=== PATIENT | male | born 1980 | race Two or more races ===

== ENCOUNTER 2024-06-05 11:04 | Emergency (ER) | payer OTHER ==
[~2024-06-05] VITALS: Ht 177.8 cm; Wt 83.3 kg
[2024-06-05] MEDS ORDERED: 0.9% SODIUM CHLORIDE 10 ML SYRINGE IVP PRN (11:15)
[2024-06-05] MEDS ORDERED: CEFEPIME HCL 2 GM in DEXTROSE 5%-WATER 50 ML IV ONE (11:15)
[2024-06-05 11:16] VITALS: TEMP 99.8
[2024-06-05] MEDS ORDERED: GADOTERATE MEGLUMINE 10 MMOL/20 ML VIAL IVP ONE (11:19)
[2024-06-05 11:25] LABS: BASOPHILS % (AUTO) 0.3 % (0.0-2.0); EOSINOPHILS % (AUTO) 0 % (1.0-6.0); HEMATOCRIT 40.4 % (41-53); HEMOGLOBIN 13.2 g/dL (13.5-17.5); LYMPHOCYTES # (AUTO) 1.6 K/uL (1.0-4.8); LYMPHOCYTES % (AUTO) 6.4 % (22.0-44.0); MEAN CORPUSCULAR HEMOGLOBIN 28.1 pg (26.0-34.0); MEAN CORPUSCULAR HGB CONC 32.7 G/dL (31.0-37.0); MEAN CORPUSCULAR VOLUME 86 fL (80-100); MONOCYTES # (AUTO) 2.1 K/uL (0.1-1.0); MONOCYTES % (AUTO) 8.6 % (2.0-9.0); NEUTROPHILS # (AUTO) 20.6 K/uL (1.8-7.7); NEUTROPHILS % (AUTO) 84.7 % (40.0-70.0); PLATELET COUNT (AUTO) 252 K/uL (150-450); RED BLOOD CELL COUNT(AUTO) 4.71 MIL/uL (4.50-5.90); RED CELL DISTRIBUTION WIDTH 15.1 % (11.5-14.5); WHITE BLOOD COUNT (AUTO) 24.4 K/uL (4.5-11.0)
[2024-06-05] MEDS: SODIUM CHLORIDE 0.9% 2,500 ML IV ONE (11:42)
[2024-06-05 11:51] LABS: PROTHROMBIN TIME 11.6 SEC (9.4-11.6)
[2024-06-05] MEDS: CefTRIAXone SODIUM 2 GM in DEXTROSE 5%-WATER 50 ML IV ONE (11:59)
[2024-06-05] MEDS: VANCOMYCIN 1.5 GM/WATER(PEG) 300 ML IV ONE (11:59)
[2024-06-05 12:03] LABS: ANION GAP 13 mmol/L (8-16); CALCIUM, TOTAL 9.3 mg/dL (8.8-10.5); CARBON DIOXIDE 25 mmol/L (22-29); CHLORIDE 99 mmol/L (98-107); CREATININE 0.94 mg/dL (0.60-1.30); GLOMERULAR FILTR. RATE CALC > 60 mL/min (>60); GLUCOSE,RANDOM 133 mg/dL (70-110); POTASSIUM 4.1 mmol/L (3.5-5.1); SODIUM SERUM 137 mmol/L (136-145); UREA NITROGEN, BLOOD 11 mg/dL (7-18)
[2024-06-05 12:08] LABS: ALANINE AMINOTRANSFERASE 38 U/L (12-78); ALBUMIN 3.2 g/dL (3.4-5.0); ALKALINE PHOSPHATASE 136 U/L (46-116); ASPARTATE AMINOTRANSFERASE 16 U/L (15-37); BILIRUBIN,TOTAL 0.5 mg/dL (0.1-1.0); TOTAL PROTEIN, SERUM 7.1 g/dL (6.4-8.2)
[2024-06-05 12:14] LABS: LACTIC ACID 2.2 mmol/L (0.4-2.0)
[2024-06-05 21:35] VITALS: BP 135/93; PULSE 100; RESP 18; O2SAT 96
== END 2024-06-05 22:23 | disposition short-term general hospital (02) ==
LOC: EMS 11:06
DX: T81.43XA Infection following a procedure, organ and space surgical site, initial encounter (principal); T81.49XA Infection following a procedure, other surgical site, initial encounter; R41.82 Altered mental status, unspecified; A41.9 Sepsis, unspecified organism; G03.9 Meningitis, unspecified; X58.XXXA Exposure to other specified factors, initial encounter
CPT/HCPCS: 99291; 70553; 96365; 71045; 80048; 82248; 83605; 85025; 85610; 87040; 36415; 93005; 96368; 84145; J0696; A9575; J7060; J3490; J0692

== ENCOUNTER 2024-07-11 17:17 | Inpatient (IN) | payer OTHER ==
[~2024-07-11] VITALS: Ht 180.3 cm; Wt 77.1 kg
[2024-07-11] MEDS ORDERED: ENOXAPARIN SODIUM 40 MG/0.4 ML PF SYRINGE SQ SCH (21:00)
[2024-07-11 21:20] VITALS: BP 115/78; PULSE 62; RESP 18; TEMP 97.6; O2SAT 97
[2024-07-11] MEDS ORDERED: TraZODone HCL 100 MG TABLET PO SCH (22:30)
[2024-07-11] MEDS ORDERED: ACETAMINOPHEN 325 MG TABLET PO PRN (23:15)
[2024-07-11] MEDS: LevETIRAcetam 500 MG TABLET PO SCH (23:17)
[2024-07-11] MEDS: DOCUSATE SODIUM 100 MG CAPSULE PO SCH (23:18)
[2024-07-11] MEDS: MELATONIN 5 MG TABLET PO SCH (23:18)
[2024-07-11] MEDS: MIRTAZAPINE 15 MG TABLET PO SCH (23:19)
[2024-07-11] MEDS: BACLOFEN 10 MG TABLET PO SCH (23:20)
[2024-07-11] MEDS: SENNOSIDES 8.6 MG TABLET PO SCH (23:22)
[2024-07-11] MEDS: ETHYL ALCOHOL 62% ANTISEPTIC NASAL SANITIZER 0.6 ML AMPUL NASAL SCH (23:23)
[2024-07-11] MEDS: GABAPENTIN 300 MG CAPSULE PO SCH (23:23)
[2024-07-12 00:01] VITALS: O2SAT 97
[2024-07-12] MEDS: CeFAZolin 2 GM/DEXTROSE 50 ML IV SCH (00:16)
[2024-07-12] MEDS: 0.9% SODIUM CHLORIDE 10 ML SYRINGE IVP SCH (00:24)
[2024-07-12] MEDS ORDERED: LEVOTHYROXINE SODIUM 75 MCG TABLET PO SCH (07:00)
[2024-07-12] MEDS: ENOXAPARIN SODIUM 40 MG/0.4 ML PF SYRINGE SQ SCH (07:44)
[2024-07-12] MEDS: AMANTADINE HCL 100 MG CAPSULE PO SCH (07:45)
[2024-07-12] MEDS: AmLODIPine BESYLATE 10 MG TABLET PO SCH (07:45)
[2024-07-12] MEDS: PROPRANOLOL HCL 10 MG TABLET PO SCH (07:45)
[2024-07-12] MEDS: DICLOFENAC SODIUM 1% 100 GM GEL [2GM] TP SCH (07:47)
[2024-07-12] MEDS: LIDOCAINE 5% TRANSDERMAL PATCH TD SCH (07:47)
[2024-07-12 09:18] VITALS: BP 122/64; PULSE 72; RESP 18; TEMP 98; O2SAT 97
[2024-07-12 09:24] LABS: EOSINOPHILS % (AUTO) 5.2 % (1.0-6.0); HEMATOCRIT 38.5 % (41-53); HEMOGLOBIN 12.9 g/dL (13.5-17.5); LYMPHOCYTES # (AUTO) 0.9 K/uL (1.0-4.8); LYMPHOCYTES % (AUTO) 21.6 % (22.0-44.0); MEAN CORPUSCULAR HEMOGLOBIN 28.4 pg (26.0-34.0); MEAN CORPUSCULAR HGB CONC 33.5 G/dL (31.0-37.0); MEAN CORPUSCULAR VOLUME 85 fL (80-100); MONOCYTES # (AUTO) 0.4 K/uL (0.1-1.0); MONOCYTES % (AUTO) 8.9 % (2.0-9.0); NEUTROPHILS # (AUTO) 2.6 K/uL (1.8-7.7); NEUTROPHILS % (AUTO) 63.3 % (40.0-70.0); PLATELET COUNT (AUTO) 231 K/uL (150-450); RED BLOOD CELL COUNT(AUTO) 4.55 MIL/uL (4.50-5.90); RED CELL DISTRIBUTION WIDTH 14.6 % (11.5-14.5); WHITE BLOOD COUNT (AUTO) 4.1 K/uL (4.5-11.0)
[2024-07-12 09:40] LABS: ALANINE AMINOTRANSFERASE 7 U/L (12-78); ALBUMIN 3.1 g/dL (3.4-5.0); ALKALINE PHOSPHATASE 98 U/L (46-116); ANION GAP 7 mmol/L (8-16); ASPARTATE AMINOTRANSFERASE 12 U/L (15-37); BILIRUBIN,TOTAL 0.2 mg/dL (0.1-1.0); CALCIUM, TOTAL 8.6 mg/dL (8.8-10.5); CARBON DIOXIDE 28 mmol/L (22-29); CHLORIDE 106 mmol/L (98-107); CREATININE 0.99 mg/dL (0.60-1.30); GLOMERULAR FILTR. RATE CALC > 60 mL/min (>60); GLUCOSE,RANDOM 150 mg/dL (70-110); POTASSIUM 3.6 mmol/L (3.5-5.1); SODIUM SERUM 141 mmol/L (136-145); TOTAL PROTEIN, SERUM 6.7 g/dL (6.4-8.2); UREA NITROGEN, BLOOD 10 mg/dL (7-18)
[2024-07-12] MEDS: ACETAMINOPHEN 325 MG TABLET PO PRN (09:43)
[2024-07-12 10:18] VITALS: O2SAT 98
[2024-07-12 11:28] VITALS: BP 124/63; PULSE 68; RESP 18; TEMP 98.2; O2SAT 98
[2024-07-12] MEDS: PROPRANOLOL HCL 20 MG TABLET PO SCH (15:39)
[2024-07-12 16:08] VITALS: BP 127/62; PULSE 75; RESP 18; TEMP 98.6; O2SAT 98
[2024-07-12 20:03] VITALS: BP 115/57; PULSE 79; RESP 19; TEMP 98.1; O2SAT 98
[2024-07-12] MEDS: -LIDODERM PATCH NOTE- MISC SCH (20:12)
[2024-07-12] MEDS: HydrOXYzine HCL 50 MG TABLET PO PRN (20:16)
[2024-07-12] MEDS: CHLORHEXIDINE GLUCONATE 2% TOWELETTE [2'S/6'S] TP SCH (22:00)
[2024-07-13] MEDS ORDERED: LORazepam 2 MG/ML VIAL ONE (00:30)
[2024-07-13] MEDS: LORazepam 2 MG/ML VIAL IVP ONE ×2 (00:33→01:46)
[2024-07-13 03:02] VITALS: O2SAT 98
[2024-07-13 08:00] VITALS: BP 119/75; PULSE 69; RESP 18; TEMP 97.9; O2SAT 97
[2024-07-13] MEDS: LEVOTHYROXINE SODIUM 75 MCG TABLET PO SCH (08:48)
[2024-07-13] MEDS: GABAPENTIN 400 MG CAPSULE PO SCH (14:44)
[2024-07-13] MEDS ORDERED: PROPRANOLOL HCL 40 MG TABLET PO SCH (16:00)
[2024-07-13] MEDS ORDERED: GABAPENTIN 400 MG CAPSULE PO SCH ×2 (16:00)
[2024-07-13 16:05] VITALS: BP 111/70; PULSE 77; RESP 18
[2024-07-13] MEDS: PROPRANOLOL HCL 10 MG TABLET PO SCH (16:35)
[2024-07-13 20:00] VITALS: BP 117/74; PULSE 72; RESP 18; TEMP 98.9; O2SAT 96
[2024-07-13] MEDS: TraZODone HCL 100 MG TABLET PO SCH (20:47)
[2024-07-13] MEDS ORDERED: MIRTAZAPINE 15 MG TABLET PO SCH (21:00)
[2024-07-14] MEDS ORDERED: GABAPENTIN 400 MG CAPSULE PO SCH
[2024-07-14] MEDS ORDERED: GABAPENTIN 300 MG CAPSULE PO SCH
[2024-07-14] MEDS: MIRTAZAPINE 15 MG TABLET PO PRN (00:06)
[2024-07-14 08:30] VITALS: BP 121/82; PULSE 70; RESP 19; TEMP 97.9; O2SAT 96
[2024-07-14] MEDS: AmLODIPine BESYLATE 5 MG TABLET PO SCH (09:16)
[2024-07-14] MEDS: ENOXAPARIN SODIUM 40 MG/0.4 ML PF SYRINGE SQ SCH (09:18)
[2024-07-14] MEDS: GABAPENTIN 100 MG CAPSULE PO SCH (13:49)
[2024-07-14 16:13] VITALS: BP 97/64; PULSE 65; RESP 18; TEMP 98.2; O2SAT 97
[2024-07-14 19:38] VITALS: BP 108/64; PULSE 70; RESP 18; TEMP 97.8; O2SAT 97
[2024-07-14] MEDS: MELATONIN 5 MG TABLET PO SCH (20:15)
[2024-07-14] MEDS: GABAPENTIN 300 MG CAPSULE PO SCH (20:15)
[2024-07-14] MEDS: QUEtiapine FUMARATE 25 MG TABLET PO PRN (21:50)
[2024-07-14 22:10] VITALS: O2SAT 97
[2024-07-15] MEDS: CABERGOLINE 0.5 MG PO SCH (07:38)
[2024-07-15 08:05] VITALS: BP 96/62; PULSE 58; RESP 18; TEMP 98; O2SAT 95
[2024-07-15] MEDS ORDERED: QUEtiapine FUMARATE 25 MG TABLET PO PRN (08:30)
[2024-07-15 09:00] VITALS: BP 98/64; PULSE 60; RESP 18; TEMP 98.2; O2SAT 98
[2024-07-15] MEDS ORDERED: CABERGOLINE 0.5 MG PO SCH (09:00)
[2024-07-15] MEDS: AmLODIPine BESYLATE 2.5 MG TABLET PO SCH (09:00)
[2024-07-15 10:43] VITALS: O2SAT 98
[2024-07-15 16:48] VITALS: BP 124/63; PULSE 70; RESP 18; TEMP 98.6; O2SAT 98
[2024-07-15] MEDS: QUEtiapine FUMARATE 25 MG TABLET PO SCH (19:53)
[2024-07-15 20:00] VITALS: BP 127/79; PULSE 77; RESP 20; TEMP 97.9; O2SAT 96
[2024-07-15 23:00] VITALS: O2SAT 96
[2024-07-16] MEDS ORDERED: SODIUM CHLORIDE 0.9% 250 ML IV ONE (05:38)
[2024-07-16 08:00] VITALS: BP 90/58; PULSE 58; RESP 19; TEMP 98; O2SAT 100
[2024-07-16 08:10] LABS: ANION GAP 6 mmol/L (8-16); CALCIUM, TOTAL 8.5 mg/dL (8.8-10.5); CARBON DIOXIDE 28 mmol/L (22-29); CHLORIDE 103 mmol/L (98-107); CREATININE 0.85 mg/dL (0.60-1.30); GLOMERULAR FILTR. RATE CALC > 60 mL/min (>60); GLUCOSE,RANDOM 81 mg/dL (70-110); POTASSIUM 3.7 mmol/L (3.5-5.1); SODIUM SERUM 137 mmol/L (136-145); UREA NITROGEN, BLOOD 10 mg/dL (7-18)
[2024-07-16 08:15] VITALS: BP 126/63; PULSE 76
[2024-07-16] MEDS ORDERED: -LIDODERM PATCH NOTE- MISC SCH (10:04)
[2024-07-16 10:50] LABS: BASOPHILS % (AUTO) 0.8 % (0.0-2.0); EOSINOPHILS % (AUTO) 3.1 % (1.0-6.0); HEMATOCRIT 42.1 % (41-53); HEMOGLOBIN 13.9 g/dL (13.5-17.5); LYMPHOCYTES # (AUTO) 1.4 K/uL (1.0-4.8); LYMPHOCYTES % (AUTO) 22.8 % (22.0-44.0); MEAN CORPUSCULAR HEMOGLOBIN 27.6 pg (26.0-34.0); MEAN CORPUSCULAR HGB CONC 32.9 G/dL (31.0-37.0); MEAN CORPUSCULAR VOLUME 84 fL (80-100); MONOCYTES # (AUTO) 0.7 K/uL (0.1-1.0); MONOCYTES % (AUTO) 10.8 % (2.0-9.0); NEUTROPHILS # (AUTO) 3.9 K/uL (1.8-7.7); NEUTROPHILS % (AUTO) 62.5 % (40.0-70.0); PLATELET COUNT (AUTO) 285 K/uL (150-450); RED BLOOD CELL COUNT(AUTO) 5.01 MIL/uL (4.50-5.90); RED CELL DISTRIBUTION WIDTH 14.7 % (11.5-14.5); WHITE BLOOD COUNT (AUTO) 6.3 K/uL (4.5-11.0)
[2024-07-16 20:00] VITALS: BP 102/73; PULSE 76; RESP 20; TEMP 97.9; O2SAT 97
[2024-07-17 09:02] VITALS: BP 115/74; PULSE 61; RESP 18; TEMP 97.5; O2SAT 97
[2024-07-17 09:03] VITALS: BP 108/68; PULSE 85
[2024-07-17 09:41] VITALS: O2SAT 97
[2024-07-17] MEDS: QUEtiapine FUMARATE 25 MG TABLET PO PRN (11:31)
[2024-07-17 17:10] VITALS: BP 137/79; PULSE 75
[2024-07-17 19:17] VITALS: BP 125/77; PULSE 77; RESP 18; TEMP 98; O2SAT 98
[2024-07-17 23:50] VITALS: O2SAT 98
[2024-07-18 08:00] VITALS: BP 115/74; PULSE 64; RESP 18; TEMP 97.5; O2SAT 98
[2024-07-18] MEDS: SULFAMETHOX/TRIMETH DS 800-160 MG/TABLET PO SCH (08:25)
[2024-07-18 16:00] VITALS: BP 99/58; PULSE 71; RESP 18; O2SAT 98
[2024-07-18 17:00] VITALS: BP 88/53; PULSE 64; RESP 18; O2SAT 98
[2024-07-18] MEDS: MIRTAZAPINE 15 MG TABLET PO PRN (20:11)
[2024-07-18 21:05] VITALS: O2SAT 97
[2024-07-18 21:06] VITALS: BP 107/76; PULSE 82; RESP 18; TEMP 98.1; O2SAT 97
[2024-07-19 08:05] VITALS: BP 98/61; PULSE 60; RESP 18; TEMP 98.4; O2SAT 98
[2024-07-19 09:00] VITALS: BP 100/64; PULSE 60; RESP 18; TEMP 98; O2SAT 98
[2024-07-19 10:43] VITALS: O2SAT 98
[2024-07-19 16:00] VITALS: BP 131/68; PULSE 65; RESP 18; TEMP 98.4; O2SAT 98
[2024-07-19 20:00] VITALS: BP 127/78; PULSE 83; RESP 18; TEMP 97.4; O2SAT 97
[2024-07-19 23:29] VITALS: O2SAT 97
[2024-07-20 08:45] VITALS: BP 107/76; PULSE 69; RESP 19; TEMP 98; O2SAT 97
[2024-07-20] MEDS: FLUoxetine HCL 10 MG CAPSULE PO SCH (08:57)
[2024-07-20 16:47] VITALS: BP 112/74; PULSE 68
[2024-07-20 20:02] VITALS: BP 110/74; PULSE 75; RESP 18; TEMP 97.6; O2SAT 96
[2024-07-20 22:00] VITALS: O2SAT 96
[2024-07-21 08:00] VITALS: BP 110/64; PULSE 64; RESP 19; TEMP 97.8; O2SAT 97
[2024-07-21 20:00] VITALS: BP 110/77; PULSE 67; RESP 18; TEMP 97.5; O2SAT 94
[2024-07-22 08:00] VITALS: BP 123/69; PULSE 65; RESP 19; TEMP 97.7; O2SAT 100
[2024-07-22 16:00] VITALS: BP 108/71; PULSE 70; RESP 18
[2024-07-22] MEDS: CARBOXYMETHYLCELLULOSE SODIUM 0.4 ML OPHTHALMIC SOLUTION [PF] OU PRN (18:11)
[2024-07-22 20:00] VITALS: BP 118/78; PULSE 67; RESP 18; TEMP 98.2; O2SAT 97
[2024-07-23 08:05] VITALS: BP 117/76; PULSE 73; RESP 19; TEMP 97.7; O2SAT 97
[2024-07-23 16:16] VITALS: BP 127/70; PULSE 70
[2024-07-23 20:10] VITALS: BP 127/96; PULSE 64; RESP 18; TEMP 97.5; O2SAT 100
[2024-07-24 01:23] VITALS: O2SAT 100
[2024-07-24 08:05] VITALS: BP 103/69; PULSE 57; RESP 18; TEMP 97.5; O2SAT 98
[2024-07-24] MEDS: TETRAHYDROZOLINE HCL 0.05% 15 ML OPHTHALMIC SOLUTION OU SCH (08:44)
[2024-07-24 09:57] VITALS: O2SAT 98
[2024-07-24] MEDS: MECLIZINE HCL 25 MG TABLET PO PRN (11:11)
[2024-07-24 16:00] VITALS: BP 124/72; PULSE 78; RESP 18; O2SAT 98
[2024-07-24 20:01] VITALS: BP 116/75; PULSE 70; RESP 18; TEMP 98; O2SAT 96
[2024-07-24 21:04] VITALS: O2SAT 96
[2024-07-25 08:05] VITALS: BP 123/72; PULSE 78; RESP 18; TEMP 98.2; O2SAT 98
[2024-07-25 09:37] VITALS: O2SAT 98
[2024-07-25 16:00] VITALS: BP 128/78; PULSE 77; RESP 18; TEMP 98.1
[2024-07-25 21:33] VITALS: BP 124/69; PULSE 76; RESP 20; TEMP 97.5; O2SAT 97
[2024-07-26 08:05] VITALS: BP 100/64; PULSE 58; RESP 18; TEMP 98.4; O2SAT 98
[2024-07-26 11:57] VITALS: O2SAT 98
[2024-07-26 16:35] VITALS: BP 118/67; PULSE 70; RESP 18; O2SAT 98
[2024-07-26 20:00] VITALS: BP 118/77; PULSE 79; RESP 19; TEMP 98.3; O2SAT 97
[2024-07-27 09:00] VITALS: BP 115/70; PULSE 55; RESP 18; TEMP 97.9; O2SAT 97
[2024-07-27 12:17] VITALS: O2SAT 97
[2024-07-27 21:11] VITALS: BP 123/87; PULSE 74; RESP 18; TEMP 97.5; O2SAT 98
[2024-07-27] MEDS ORDERED: LORazepam 2 MG/ML VIAL IM PRN (21:45)
[2024-07-27 22:28] VITALS: O2SAT 98
[2024-07-28 09:23] VITALS: BP 111/71; PULSE 59; RESP 18; TEMP 97.8; O2SAT 99
[2024-07-28 16:02] VITALS: BP 116/82; PULSE 77
[2024-07-28 20:00] VITALS: BP 109/73; PULSE 67; RESP 18; TEMP 98.6; O2SAT 96
[2024-07-28 20:46] VITALS: O2SAT 96
[2024-07-28 20:49] VITALS: TEMP 98.2
[2024-07-29 08:05] VITALS: BP 100/76; PULSE 54; RESP 18; TEMP 98; O2SAT 98
[2024-07-29 10:47] VITALS: O2SAT 98
[2024-07-29 16:30] VITALS: BP 120/76; PULSE 77; RESP 18; TEMP 98.4; O2SAT 98
[2024-07-29 20:01] VITALS: BP 131/60; PULSE 82; RESP 19; TEMP 97.9; O2SAT 97
[2024-07-29 22:18] VITALS: O2SAT 97
[2024-07-30 08:55] VITALS: BP 120/67; PULSE 64; RESP 18; TEMP 97.6; O2SAT 97
[2024-07-30 15:57] VITALS: BP 111/74; PULSE 77
[2024-07-30 20:00] VITALS: BP 105/70; PULSE 69; RESP 19; TEMP 97.7; O2SAT 98
[2024-07-31 07:30] VITALS: BP 97/61; PULSE 58; RESP 19; TEMP 97.8; O2SAT 99
[2024-07-31 08:40] VITALS: BP 114/72; PULSE 71; O2SAT 99
[2024-07-31 20:01] VITALS: BP 108/74; PULSE 68; RESP 18; TEMP 98.5; O2SAT 96
[2024-07-31 21:37] VITALS: O2SAT 96
[2024-08-01 08:00] VITALS: BP 108/72; PULSE 64; RESP 19; TEMP 98; O2SAT 97
[2024-08-01 09:30] VITALS: BP 126/93; PULSE 78; RESP 18; O2SAT 98
[2024-08-01 15:47] VITALS: BP 122/76; PULSE 62; RESP 18; O2SAT 98
[2024-08-01 22:26] VITALS: O2SAT 98
[2024-08-01 22:27] VITALS: BP 118/67; PULSE 75; RESP 18; TEMP 98.2; O2SAT 98
[2024-08-02 08:05] VITALS: BP 124/68; PULSE 70; RESP 18; TEMP 98.2; O2SAT 98
[2024-08-02 14:34] VITALS: O2SAT 98
[2024-08-02 16:30] VITALS: BP 134/74; PULSE 80; RESP 18; TEMP 98.6; O2SAT 98
[2024-08-02 20:00] VITALS: BP 105/72; PULSE 75; RESP 18; TEMP 98.2; O2SAT 98
[2024-08-03 08:00] VITALS: BP 112/71; PULSE 67; RESP 18; TEMP 98; O2SAT 98
[2024-08-03 16:07] VITALS: BP 117/69; PULSE 70; RESP 17; O2SAT 98
[2024-08-03 20:00] VITALS: BP 107/79; PULSE 69; RESP 18; TEMP 98.8; O2SAT 98
[2024-08-04] VITALS (7 sets, daily range): BP systolic 107–133; BP diastolic 68–90; PULSE 66–73; RESP 18–19; TEMP 97.5–98; O2SAT 96–97
[2024-08-04] MEDS: MELATONIN 5 MG TABLET PO SCH (19:37)
[2024-08-05] VITALS (7 sets, daily range): BP systolic 107–129; BP diastolic 69–88; PULSE 53–69; RESP 18; TEMP 97.8–98; O2SAT 95–96
[2024-08-05 07:12] LABS: ALANINE AMINOTRANSFERASE 20 U/L (12-78); ALBUMIN 3.4 g/dL (3.4-5.0); ALKALINE PHOSPHATASE 117 U/L (46-116); ANION GAP 7 mmol/L (8-16); ASPARTATE AMINOTRANSFERASE 14 U/L (15-37); BILIRUBIN,TOTAL 0.2 mg/dL (0.1-1.0); CALCIUM, TOTAL 8.8 mg/dL (8.8-10.5); CARBON DIOXIDE 26 mmol/L (22-29); CHLORIDE 103 mmol/L (98-107); CREATININE 1.18 mg/dL (0.60-1.30); GLOMERULAR FILTR. RATE CALC > 60 mL/min (>60); GLUCOSE,RANDOM 92 mg/dL (70-110); POTASSIUM 4.2 mmol/L (3.5-5.1); SODIUM SERUM 136 mmol/L (136-145); TOTAL PROTEIN, SERUM 6.8 g/dL (6.4-8.2); UREA NITROGEN, BLOOD 13 mg/dL (7-18)
[2024-08-05 07:15] LABS: BASOPHILS % (AUTO) 0.8 % (0.0-2.0); HEMATOCRIT 41.1 % (41-53); HEMOGLOBIN 13.6 g/dL (13.5-17.5); LYMPHOCYTES # (AUTO) 2.6 K/uL (1.0-4.8); LYMPHOCYTES % (AUTO) 36.9 % (22.0-44.0); MEAN CORPUSCULAR HEMOGLOBIN 27.2 pg (26.0-34.0); MEAN CORPUSCULAR HGB CONC 33.2 G/dL (31.0-37.0); MEAN CORPUSCULAR VOLUME 82 fL (80-100); MONOCYTES # (AUTO) 0.5 K/uL (0.1-1.0); MONOCYTES % (AUTO) 6.8 % (2.0-9.0); NEUTROPHILS # (AUTO) 3.7 K/uL (1.8-7.7); NEUTROPHILS % (AUTO) 52.5 % (40.0-70.0); PLATELET COUNT (AUTO) 263 K/uL (150-450); RED BLOOD CELL COUNT(AUTO) 5.02 MIL/uL (4.50-5.90)
[2024-08-06 07:38] VITALS: BP 100/63; PULSE 58; RESP 18; TEMP 98.6; O2SAT 98
[2024-08-06 08:08] VITALS: O2SAT 98
[2024-08-06 15:49] VITALS: BP 123/78; PULSE 57; RESP 18; O2SAT 98
[2024-08-06 19:27] VITALS: BP 116/62; PULSE 69; RESP 18; TEMP 97.9; O2SAT 96
[2024-08-06] MEDS: DICLOFENAC SODIUM 1% 100 GM GEL [2GM] TP PRN (19:28)
[2024-08-06 22:30] VITALS: O2SAT 96
[2024-08-07 08:00] VITALS: BP 133/62; PULSE 63; RESP 19; TEMP 98.3; O2SAT 96
[2024-08-07 20:00] VITALS: BP 115/89; PULSE 73; RESP 20; TEMP 97.4; O2SAT 100
[2024-08-08 08:00] VITALS: BP 104/72; PULSE 74; RESP 18; TEMP 98.1; O2SAT 97
[2024-08-08 11:42] VITALS: BP 107/78; PULSE 71; RESP 18; O2SAT 98
[2024-08-08 22:56] VITALS: O2SAT 97
[2024-08-08 22:57] VITALS: BP 121/75; PULSE 69; RESP 18; TEMP 97.5; O2SAT 97
[2024-08-09 08:00] VITALS: BP 102/69; PULSE 62; RESP 16; TEMP 98.4; O2SAT 97
[2024-08-09 15:50] VITALS: BP 146/74; O2SAT 98
[2024-08-09 19:48] VITALS: BP 114/74; PULSE 73; RESP 18; TEMP 97.3; O2SAT 96
[2024-08-09 21:06] VITALS: O2SAT 96
[2024-08-10 08:05] VITALS: BP 113/75; PULSE 57; RESP 18; TEMP 98.4; O2SAT 98
[2024-08-10 09:36] VITALS: O2SAT 98
[2024-08-10 15:54] VITALS: BP 120/78; PULSE 76; RESP 18; O2SAT 98
[2024-08-10 19:35] VITALS: BP 124/85; PULSE 78; RESP 18; TEMP 98; O2SAT 96
[2024-08-10 21:59] VITALS: O2SAT 96
[2024-08-11 09:15] VITALS: BP 113/71; PULSE 65; RESP 18; TEMP 98.6; O2SAT 97
[2024-08-11 16:00] VITALS: BP 135/57; PULSE 62; RESP 18; O2SAT 99
[2024-08-11 19:36] VITALS: BP 119/81; PULSE 70; RESP 18; TEMP 98.2; O2SAT 95
[2024-08-11 23:09] VITALS: O2SAT 95
[2024-08-12 08:05] VITALS: BP 106/72; PULSE 57; RESP 18; TEMP 98; O2SAT 98
[2024-08-12 11:00] VITALS: BP 124/78; PULSE 68; RESP 18; TEMP 98.4; O2SAT 98
[2024-08-12 14:17] VITALS: O2SAT 98
[2024-08-12 16:00] VITALS: BP 110/67; PULSE 56; RESP 18; TEMP 98; O2SAT 98
[2024-08-12 20:02] VITALS: BP 111/78; PULSE 72; RESP 16; TEMP 97.8; O2SAT 96
[2024-08-12 20:05] VITALS: O2SAT 96
[2024-08-13 08:00] VITALS: BP 107/70; PULSE 60; RESP 16; TEMP 98.8; O2SAT 99
[2024-08-13 15:55] VITALS: BP 120/92; PULSE 82; RESP 16; TEMP 98; O2SAT 98
[2024-08-13 20:00] VITALS: BP 121/87; PULSE 68; RESP 18; TEMP 98.5; O2SAT 95
[2024-08-14 08:15] VITALS: BP 118/74; PULSE 62; RESP 18; TEMP 98.1; O2SAT 97
[2024-08-14 16:14] VITALS: BP 123/86; PULSE 58
[2024-08-14] MEDS: SULFAMETHOX/TRIMETH DS 800-160 MG/TABLET PO SCH (20:05)
[2024-08-14 20:09] VITALS: BP 139/96; PULSE 55; RESP 18; TEMP 97.7; O2SAT 98
[2024-08-14 23:33] VITALS: BP 139/96; PULSE 55; RESP 18; TEMP 97.8; O2SAT 98
[2024-08-15 08:05] VITALS: BP 98/62; PULSE 56; RESP 18; TEMP 98.4; O2SAT 98
[2024-08-15 11:03] VITALS: O2SAT 98
[2024-08-15] MEDS ORDERED: PROP10TA72 PO (11:55)
[2024-08-15] MEDS ORDERED: FLUO-341 PO (11:55)
[2024-08-15] MEDS ORDERED: SULF-261 PO (11:55)
[2024-08-15] MEDS ORDERED: LEVE-71 PO (11:55)
[2024-08-15] MEDS ORDERED: DOCU-385 PO (11:55)
[2024-08-15] MEDS ORDERED: HYDR-4584 PO (11:55)
[2024-08-15] MEDS ORDERED: GABA-1181 PO (11:55)
[2024-08-15] MEDS ORDERED: LEVO75 PO (11:55)
[2024-08-15] MEDS ORDERED: TRAZ-257 PO (11:55)
[2024-08-15] MEDS ORDERED: MELA5TAB40 PO (11:55)
[2024-08-15] MEDS ORDERED: QUET25TA36 PO (11:55)
[2024-08-15] MEDS ORDERED: AMAN-24 PO (11:55)
[2024-08-15 16:20] VITALS: BP 113/78; PULSE 74; RESP 18; TEMP 98.6; O2SAT 98
[2024-08-15 20:02] VITALS: BP 116/71; PULSE 79; RESP 18; TEMP 98; O2SAT 98
[2024-08-15 22:18] VITALS: O2SAT 98
[2024-08-16 08:05] VITALS: BP 105/67; PULSE 57; RESP 18; TEMP 98; O2SAT 98
[2024-08-16 12:45] VITALS: O2SAT 98
[2024-08-16 16:00] VITALS: BP 100/63; PULSE 56; RESP 18; TEMP 98.3; O2SAT 98
[2024-08-16 19:50] VITALS: BP 113/68; PULSE 82; RESP 17; TEMP 97.6; O2SAT 97
[2024-08-16 22:39] VITALS: O2SAT 97
[2024-08-17 08:00] VITALS: BP 123/70; PULSE 71; RESP 18; TEMP 97.7; O2SAT 96
[2024-08-17 16:15] VITALS: BP 123/75
[2024-08-17 19:32] VITALS: BP 117/73; PULSE 68; RESP 18; TEMP 98.3; O2SAT 98
[2024-08-18 01:48] VITALS: O2SAT 98
[2024-08-18 09:00] VITALS: BP 108/67; PULSE 66; RESP 18; TEMP 98.1; O2SAT 96
[2024-08-18 16:35] VITALS: BP 127/86; PULSE 81; RESP 18
[2024-08-18 20:01] VITALS: BP 112/76; PULSE 70; RESP 18; TEMP 98.7; O2SAT 96
[2024-08-18 21:48] VITALS: O2SAT 96
[2024-08-19 08:00] VITALS: BP 110/74; PULSE 55; RESP 18; TEMP 97.8; O2SAT 95
[2024-08-19 08:05] VITALS: PULSE 78
== END 2024-08-19 11:45 | DRG 57 ==
LOC: 2WR 21:30
PROVIDERS: ADMIT Physical Medicine & Rehabilitation; ATTEND Physical Medicine & Rehabilitation
DX: S06.890A Other specified intracranial injury without loss of consciousness, initial encounter (principal); E23.0 Hypopituitarism; R51.9 Headache, unspecified; R47.01 Aphasia; I10 Essential (primary) hypertension; R32 Unspecified urinary incontinence; Z74.09 Other reduced mobility; E03.9 Hypothyroidism, unspecified; G47.00 Insomnia, unspecified; R13.12 Dysphagia, oropharyngeal phase; S02.91XA Unspecified fracture of skull, initial encounter for closed fracture; V00.148A Other scooter (nonmotorized) accident, initial encounter; Y93.89 Activity, other specified; Y92.89 Other specified places as the place of occurrence of the external cause; Y99.8 Other external cause status; Z87.820 Personal history of traumatic brain injury; E03.8 Other specified hypothyroidism; R26.9 Unspecified abnormalities of gait and mobility; R40.0 Somnolence; R41.89 Other symptoms and signs involving cognitive functions and awareness; R45.1 Restlessness and agitation; R45.87 Impulsiveness; R47.1 Dysarthria and anarthria; F41.9 Anxiety disorder, unspecified
CPT/HCPCS: 71045; 80048; 80053; 84145; 85025; 87081; 92507; 92523; 92526; 92610; 93970; 97110; 97112; 97116; 97163; 97167; 97530; 97535; 99366; 99368; J0690; J1650; J2060; J7050; 36415-L1; 36415-TC